=== PATIENT | male | born 1945 | race Caucasian/White ===

== ENCOUNTER 2016-08-15 06:52 | Day surgery (SDC) | payer BC, OTHER ==
[2016-08-09 15:11] LABS: HEMATOCRIT 40.4 % (40.0-51.0); HEMOGLOBIN 13.1 g/dL (13.6-17.8)
[2016-08-09 15:21] LABS: ALBUMIN 3.3 G/DL (3.5-5.0); ALKALINE PHOSPHATASE 114 U/L (45-117); BUN (BLOOD UREA NITROGEN) 15 MG/DL (6-23); CALCIUM, SERUM 10.1 MG/DL (8.5-10.4); CHLORIDE, SERUM 111 MMOL/L (96-112); CO2 (CARBON DIOXIDE) 30 MMOL/L (24-34); CREATININE 1.31 MG/DL (0.70-1.30); GFR AFRICAN AMERICAN 63 ML/MIN (>=60); GFR NON AFRICAN AMERICAN 54 ML/MIN (>=60); GLOBULIN 3.2 G/DL (2.5-4.1); GLUCOSE, SERUM 86 MG/DL (60-99); POTASSIUM, SERUM 4.6 MMOL/L (3.5-5.3); SGOT(AST) 17 U/L (5-40); SGPT(ALT) 20 U/L (5-65); SODIUM, SERUM 145 MMOL/L (135-148); TOTAL BILIRUBIN 0.5 MG/DL (0-1.2); TOTAL PROTEIN 6.5 G/DL (6.0-8.5)
--- NOTE | ~2016-08-15 | OP ---
Record Of Operation [facility] [address] [place]. [address] NAME: JULIA PEGUERO : 43 [place] [facility] [place] [id number] AGE: 71 ADM/REG DATE : 08/15/16 MR#: [id number] REPORT SERV DATE: 08/15/16 DICTATED BY: RICHMOND MCFARLAND DATE: 08/15/16 REPORT STATUS : Draft TRANSCRIBED BY: MODYulia DATE: 08/15/16 DATE OF PROCEDURE: 08/15/2016 PREOPERATIVE DIAGNOSIS: Hyperparathyroidism. POSTOPERATIVE DIAGNOSIS: Hyperparathyroidism. PROCEDURE: Parathyroidectomy. ANESTHESIA: General. ESTIMATED BLOOD LOSS: Less than 5 mL. IV FLUIDS: 300 mL of crystalloid. SPECIMEN: Right inferior parathyroid gland. DRAINS: None. COMPLICATIONS: None. FINDINGS: The patient had an enlarged right inferior parathyroid gland. Preoperative PTH was 146.7 and the 10-minute draw after excision of the specimen, PTH was 54. INDICATIONS FOR PROCEDURE: This is a 71-year-old male, who has been having stage 3 chronic kidney disease, and a history of nephrolithiasis, also complaining of lethargy, back pain, and has had calciums measured at 9.7 and 7.3, and a PTH outpatient 118 and 145 on recheck. The fompvrch-dl-tfzqpskxin ratio was about 50. A sestamibi scan was performed and showed a possible right inferior parathyroid adenoma. The above procedure was offered to the patient. The risks, benefits, and alternatives were explained to the patient who expressed clear verbal understanding and wished to proceed for this elective procedure. DESCRIPTION OF PROCEDURE: After informed consent was obtained, the patient was taken back to the operative theater and placed on the operating table in supine position. The patient was given adequate analgesia and anesthesia, and successfully endotracheally intubated. The surgery site was then prepped and draped in a standard fashion. A formal time-out was then performed. All present in the operating room were in agreement, elected to proceed forward with the procedure. We began making a transverse collar incision 2 fingerbreadths above the sternal notch in a natural skin crease. We then used electrocautery to come through the platysma muscle. Subplatysmal flaps were then made inferiorly and superiorly. We then divided the midline raphae our strap muscles. We came down to the thyroid gland. The thyroid gland was freed from the sternothyroid strap muscle with electrocautery, grasped with an Allis and retracted anteromedial. On the posterior lateral segment of the right inferior thyroid lobe, we located our right inferior parathyroid gland. It was enlarged, and it was dissected free with electrocautery and all bridging vessels were clipped. The specimen was passed off the surgical field. Our wound bed was investigated. Hemostasis Record Of Operation [address] [place]. [address] NAME: JULIA PEGUERO : 43 [place] [facility] [place] [id number] AGE: 71 ADM/REG DATE : 08/15/16 MR#: [id number] REPORT SERV DATE: 08/15/16 DICTATED BY: RICHMOND MCFARLAND DATE: 08/15/16 REPORT STATUS : Draft TRANSCRIBED BY: TANIA DATE: 08/15/16 noted to have been achieved. We turned our attention to the right superior, looking for a parathyroid. No clear adenoma was visualized, therefore at this time, we then concluded our procedure. We reapproximated the strap muscles with a running 3-0 Vicryl stitch, reapproximating the platysma with 4-0 Vicryl simple interrupted stitches. Reapproximated our skin edges with 4-0 Monocryl subcuticular stitch in a running fashion. Skin edges were reapproximated very well. Hemostasis noted to have been achieved. Sterile dressings were applied. The PTH that was drawn 10 minute post excision time, came back and was a level of 54, consistent with a drop of greater than 50% in the PTH level, and then I continued with the parathyroid adenoma removal. Therefore, at this time, the patient was reversed from anesthesia and successfully extubated in the operating room. The patient was awakened. Vital signs were stable. The patient was transferred to the recovery room in stable condition. /TANIA Richmond Mcfarland M.D. / [id number] CC: Eugenio Kemp Paul Daniel
[~2016-08-15 06:52] MED LIST: FISH OIL1200 MG PO; FLOMAX4 PO; ICAPS MV PO
[2016-08-15 09:01] LABS: PTH (INTRAOPERATIVE) 146.7 PG/ML (10.0-65.0); PTH TAT 0 Hrs 22 Mins
[2016-08-15 09:39] LABS: PTH (INTRAOPERATIVE) 53.9 PG/ML (10.0-65.0); PTH TAT 0 Hrs 00 Mins
[2016-08-15 09:47] LABS: PTH (INTRAOPERATIVE) 35.5 PG/ML (10.0-65.0); PTH TAT 0 Hrs 00 Mins
== END 2016-08-15 21:52 | disposition home or self-care (01) ==
LOC: SDC 06:52
PROVIDERS: Specialist
PROC: 0GTN0ZZ Resection of Right Inferior Parathyroid Gland, Open Approach (ICD-10-PCS; principal; 2016-08-15 08:30)
DX: E21.3 Hyperparathyroidism, unspecified (principal); N40.0 Benign prostatic hyperplasia without lower urinary tract symptoms; N18.3 Chronic kidney disease, stage 3 (moderate); Z88.1 Allergy status to other antibiotic agents; Z79.899 Other long term (current) drug therapy; Z87.442 Personal history of urinary calculi; Z85.89 Personal history of malignant neoplasm of other organs and systems; Z92.21 Personal history of antineoplastic chemotherapy; Z90.49 Acquired absence of other specified parts of digestive tract; Z98.890 Other specified postprocedural states
CPT/HCPCS: 80053; 83970; 85014; 85018; 88305; 88313; 93005; A9270-GY; C1769; J0690; J2250; J2405; J2710; J3010